=== PATIENT | male | born 1930 | race Caucasian/White ===

== ENCOUNTER 2017-05-16 15:52 | Inpatient (IN) | payer OTHER ==
[2017-05-16 17:18] LABS: Urine Appearance CLEAR; Urine Bilirubin NEGATIVE (NEG); Urine Blood NEGATIVE (NEG); Urine Color YELLOW; Urine Glucose NEGATIVE (NEG); Urine Protein 2+ (NEG); Urine Urobilinogen 0.2 mg/dL (0.2-1.0)
[2017-05-16] MEDS ORDERED: D50W 25 GM/50 ML SYRINGE IV PRN (17:21)
[2017-05-16] MEDS ORDERED: GLUCAGON 1 MG/VIAL IM PRN (17:21)
[2017-05-16] MEDS ORDERED: FUROSEMIDE 40 MG/4 ML VIAL IV ONE (17:22)
[2017-05-16 17:30] LABS: Urine Microscopic Reflex ORDER UMIC
[2017-05-16 17:47] LABS: Urine Bacteria NONE SEEN /HPF (NONE SEEN); Urine RBC NONE SEEN /HPF (NONE SEEN)
[2017-05-16 17:48] LABS: Urine Culture Reflex Order NOT NEEDED
[2017-05-16 17:52] LABS: Absolute Lymphocytes (CBC) 0.5 K/uL (0.7-4.9); Absolute Monocytes 0.6 K/uL (0.1-1.3); Absolute Neutrophil 5.7 K/uL (1.8-8.0); Basophils % 0.6 % (0-1.3); Eosinophils % 1.5 % (0-4.4); Lymphocytes % 7.7 % (15.3-44.8); MCV 93.1 fL (80-100); MPV 8.4 fL (7.6-11.3); Monocytes % 8.8 % (3.3-12.3); RBC Red Blood Cell Count 3.97 M/uL (4.33-5.43)
[2017-05-16 17:54] VITALS: BMI 26.2
[2017-05-16 17:56] LABS: Potassium 4.6 mEq/L (3.6-5.0)
[2017-05-16] MEDS: ENOXAPARIN 40 MG/0.4 ML SQ SCH (17:57)
[2017-05-16 17:59] LABS: Albumin 3.6 g/dL (3.2-5.5); Bilirubin Total 0.9 mg/dL (0.3-1.2); Magnesium 1.9 mg/dL (1.8-2.5); Protein, Total 5.7 g/dL (6.0-8.3)
[2017-05-16 18:38] LABS: Thyroid Stimulating Hormone 6.01 uIU/mL (0.34-5.60)
--- NOTE | 2017-05-16 20:03 | RAD REPORT ---
EXAM DESCRIPTION: Ximena Fofana And Tru (2 Views)05/16/2017 7:56 pm CLINICAL HISTORY: sob COMPARISON: March 2016 FINDINGS: Small bilateral pleural effusions are present. Mild bilateral interstitial lung opacities are seen. The heart is mildly to moderately enlarged. Postsurgical changes involve the chest. Pacemaker leads a re in place IMPRESSION: CHF
[2017-05-16] MEDS: INSULIN -REGULAR HUMAN 50 UNIT/0.5 ML ML SQ SCH (20:55)
[2017-05-17 04:41] LABS: Potassium 3.9 mEq/L (3.6-5.0)
[2017-05-17] MEDS ORDERED: POTASSIUM CL SA 10 MEQ TAB PO ONE (05:49)
[2017-05-17] MEDS: INSULIN -REGULAR HUMAN 50 UNIT/0.5 ML ML SQ SCH ×4 (07:30→20:36)
[2017-05-17] MEDS: FUROSEMIDE 40 MG/4 ML VIAL IV SCH (09:18)
[2017-05-17] MEDS: ENOXAPARIN 40 MG/0.4 ML SQ SCH (09:19)
[2017-05-17] MEDS: LOSARTAN/HCTZ 50-12.5 PO SCH ×2 (09:19→20:34)
[2017-05-17] MEDS: CARVEDILOL 6.25 MG TAB PO SCH ×2 (09:19→20:33)
[2017-05-17] MEDS: ASPIRIN EC 81 MG TAB PO SCH (09:20)
[2017-05-17] MEDS: TAMSULOSIN 0.4 MG SR CAP PO SCH (09:20)
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
[2017-05-17 09:47] LABS: A1c Component 0.66 mg/dL; Hemoglobin A1c 7.1 % (4-6.0)
--- NOTE | 2017-05-17 15:13 | PN ---
Date of Progress Note: 05/17/2017 The patient seen and examined. Chart reviewed and case discussed with RN. History: The patient is one of Dr. Huston's patients. Hospice service is covering for him. The patient reports improvement in his shortness of breath. Still has significant lower extremity edema. Review of Systems: Negative except as above. Medications: Reviewed. Physical Examination: Vital Signs: Temperature 97.3, heart rate 67, blood pressure 158/86, respirations 20, O2 96% on room air. General: Awake, alert, oriented x3. No acute distress. Elderly male. CV: S1, S2. No murmurs. Peripheral pulses present. Respiratory: Diminished breath sounds at the bases. Some crackles heard. No wheezing or stridor. Gastrointestinal: Abdomen is soft, nontender, nondistended. Positive bowel sounds. Extremities: No clubbing, cyanosis. 2+ pedal edema up to the shins. Neurologic: Nonfocal. Laboratory Data: Sodium 140, potassium 3.9, chloride 107, CO2 28, BUN 30, creatinine 1.26, glucose 109, hemoglobin A1c 7.1%, calcium 8.7, magnesium 2. Assessment And Plan: An 86-year-old male with. 1. Acute congestive heart failure exacerbation, diastolic dysfunction. The EF is 52% from November 2016. Repeat echocardiogram pending. We will continue with IV Lasix and monitor I's and O's. Free fluid restriction, 2 g sodium diet. 2. Coronary artery disease, [place] artery and [place] heart without angina, stable. Resume home medications. 3. Essential hypertension stable. Stable on medications. 4. Mixed hyperlipidemia. Statin. 5. Diabetes mellitus type 2 with hyperglycemia without long-term use of insulin. Continue sliding scale insulin and hemoglobin A1c 7.1%. 6. Diverticulosis. 7. Benign prostatic hypertrophy. 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
--- NOTE | 2017-05-17 16:30 | EKG ---
Test Date: 2017-05-16 Test Time: 17:31:02 Clay Miller: DEVAN MEASUREMENT RESULTS: Intervals: Rate: 64 MN: 260 QRSD: 186 QT: 500 QTc: 515 [place]: P: 48 MN: 260 QRS: -60 T: 119 INTERPRETIVE STATEMENTS: Electronic ventricular pacemaker Compared to ECG 06/17/2014 22:39:53 Sinus rhythm no longer present Myocardial infarct finding no longer present ST (T wave) deviation no longer present Possible ischemia no longer present Electronically Signed On 05-17-17 16:27:55 CDT by Chad Loza
--- NOTE | 2017-05-17 16:31 | ECHO ---
HEIGHT: 5 ft 11 in WEIGHT: 187 lb 12.8 oz DATE OF STUDY: 05/17/[address]: Froy Huston MD 2-DIMENSIONAL: YES M.MODE: YES DOPPLER: YES COLOR FLOW: YES TDS: PORTABLE: DEFINITY: BUBBLE STUDY: DIAGNOSIS: CONGESTIVE HEART FAILURE CARDIAC HISTORY: CATHERIZATION: YES SURGERY: CABG PROSTHETIC VALVE: PACEMAKER: YES MEASUREMENTS (cm) DIASTOLIC (NORMALS) SYSTOLIC (NORMALS) IVSd 1.4 (0.6-1.2) LA Diam 4.8 (1.9-4.0) LVEF 22% LVIDd 5.3 (3.5-5.7) LVIDs 4.8 (2.0-3.5) %FS 10% LVPWd 1.4 (0.6-1.2) Ao Diam 2.9 (2.0-3.7) 2 DIMENSIONAL ASSESSMENT: RIGHT ATRIUM: NORMAL LEFT ATRIUM: DILATED RIGHT VENTRICLE: NORMAL LEFT VENTRICLE: NORMAL SIZE TRICUSPID VALVE: NORMAL, PACER MITRAL VALVE: MITRAL ANNULAR CALCIFICATION PULMONIC VALVE: NORMAL AORTIC VALVE: SCLEROSIS PERICARDIAL EFFUSION: NONE AORTIC ROOT: NORMAL LEFT VENTRICULAR WALL MOTION: SEVERE GLOBAL HYPOKINESIS DOPPLER/COLOR FLOW: MODERATE TRICUSPID REGURGITATION. SEVERE PULMONARY HYPERTENSION. COMMENTS: SEVERE GLOBAL HYPOKINESIS. MODERATE TRICUSPID REGURGITATION. SEVERE PULMONARY HYPERTENSION. EJECTION FRACTION 20-25%. PACER IN RIGHT VENTRICULAR APEX. MITRAL ANNULAR CALCIFICATION. AORTIC SCLEROSIS. TECHNOLOGIST: TIA POP
[2017-05-17] MEDS: GLIMEPIRIDE 2 MG TABLET PO SCH (17:36)
[2017-05-17] MEDS: EZETIMIBE 10 MG TAB PO SCH (20:35)
[2017-05-17] MEDS ORDERED: HOME MED 1 EA UNK (Glimepiride [Glimepiride] 1 TAB) PO SCH (21:00)
[2017-05-18 05:29] LABS: Potassium 3.8 mEq/L (3.6-5.0)
[2017-05-18] MEDS ORDERED: POTASSIUM 25 MEQ EFFERV TAB PO ONE (05:39)
[2017-05-18] MEDS: INSULIN -REGULAR HUMAN 50 UNIT/0.5 ML ML SQ SCH ×4 (07:30→21:00)
[2017-05-18] MEDS: GLIMEPIRIDE 2 MG TABLET PO SCH ×2 (09:58→17:15)
[2017-05-18] MEDS: ASPIRIN EC 81 MG TAB PO SCH (09:59)
[2017-05-18] MEDS: TAMSULOSIN 0.4 MG SR CAP PO SCH (09:59)
[2017-05-18] MEDS: LOSARTAN/HCTZ 50-12.5 PO SCH ×2 (09:59→21:19)
[2017-05-18] MEDS: CARVEDILOL 6.25 MG TAB PO SCH ×2 (09:59→21:19)
[2017-05-18] MEDS: ENOXAPARIN 40 MG/0.4 ML SQ SCH (10:00)
[2017-05-18] MEDS: FUROSEMIDE 40 MG/4 ML VIAL IV SCH (10:00)
[2017-05-18] MEDS: SPIRONOLACTONE 25 MG TABLET PO SCH (15:17)
--- NOTE | 2017-05-18 18:39 | PN ---
Date of Progress Note: 05/18/2017 Subjective: The patient seen and examined, chart reviewed and case discussed with RN and patient xavi cuevas. States his breathing is better. Edema is improving slowly. Review of Systems: Negative except as above. Medications: Reviewed. Physical Examination: Vital Signs: Temperature 97.4, heart rate 73, blood pressure 150/69, respirations 18, O2 97% on room air. General: Awake, alert, oriented x3. No acute distress. Elderly male. CV: S1, S2. No murmurs. Peripheral pulses present bilaterally. Respiratory: Moving air well bilaterally. No wheezing. No stridor. Gastrointestinal: Abdomen is soft, nontender, nondistended. Positive bowel sounds. Extremities: No clubbing, cyanosis, 2+ edema bilateral lower extremities. Neurologic: Nonfocal. Laboratory Data: Sodium 139, potassium 3.8, chloride 104, CO2 29, creatinine 1.29, glucose 45, repea t glucose 77, calcium 9. Echocardiogram shows EF 22%, severe global hypokinesis, severe pulmonary hy pertension, EF 20% to 25%, pacing in the right ventricular apex, moderate tricuspid regurg. Assessment: An 86-year-old male with: 1.Acute congestive heart failure, combined systolic and diastolic dysfunction, ejection fraction is 22% from echo done yesterday. We will consult Cardiology. The patient does have severe global hypok inesis. 2.Coronary artery disease, [place] artery [place] heart without angina, stable. Continue medicati ons. 3.Essential hypertension, stable. 4.Mixed hyperlipidemia, on statin. 5.Diabetes mellitus type 2 with hyperglycemia without long-term use of insulin. The patient did hav e some hypoglycemic episodes, improved. 6.History of diverticulosis. 7.Benign prostatic hypertrophy. Plan: We will add spironolactone. Follow up with Cardiology. /VIRY Voice ID: [id number] Report ID: [id number]
[2017-05-18] MEDS: EZETIMIBE 10 MG TAB PO SCH (21:18)
[2017-05-19 03:21] VITALS: O2SAT 97
[2017-05-19 04:56] LABS: Potassium 3.8 mEq/L (3.6-5.0)
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
[2017-05-19] MEDS: INSULIN -REGULAR HUMAN 50 UNIT/0.5 ML ML SQ SCH ×2 (07:30→12:10)
[2017-05-19] MEDS ORDERED: POTASSIUM 25 MEQ EFFERV TAB PO ONE (09:00)
[2017-05-19] MEDS: ASPIRIN EC 81 MG TAB PO SCH (09:56)
[2017-05-19] MEDS: CARVEDILOL 6.25 MG TAB PO SCH (09:56)
[2017-05-19] MEDS: SPIRONOLACTONE 25 MG TABLET PO SCH (09:56)
[2017-05-19] MEDS: GLIMEPIRIDE 2 MG TABLET PO SCH (09:56)
[2017-05-19] MEDS: TAMSULOSIN 0.4 MG SR CAP PO SCH (09:57)
[2017-05-19] MEDS: LOSARTAN/HCTZ 50-12.5 PO SCH (09:57)
[2017-05-19] MEDS: ENOXAPARIN 40 MG/0.4 ML SQ SCH (09:58)
[2017-05-19] MEDS: FUROSEMIDE 40 MG/4 ML VIAL IV SCH (09:58)
--- NOTE | 2017-05-19 11:12 | RAD REPORT ---
EXAM DESCRIPTION: RAD - Chest Pa And Lat (2 Views) - 05/19/2017 6:10 am CLINICAL HISTORY: CHF, followup assessment. COMPARISON: 05/16/2017, 04/14/2016 FINDINGS: Little overall change is seen in the aeration of the lungs since the comparative study. Sm all bilateral pleural effusions are present, slightly reduced in size on the right. The heart is mode rately enlarged in size with multilead pacer device present. Sternotomy wires are present. No displac ed fractures. IMPRESSION: Essentially stable chest since comparative study.
[2017-05-19 13:17] VITALS: BP 152/79; TEMP 98.1
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
== END 2017-05-19 14:23 | disposition home or self-care (01) | DRG 291 ==
LOC: 4TH 16:32
PROVIDERS: ADMIT Family Medicine; ATTEND Family Medicine
DX: I13.0 Hypertensive heart and chronic kidney disease with heart failure and stage 1 through stage 4 chronic kidney disease, or unspecified chronic kidney disease (principal); I50.43 Acute on chronic combined systolic (congestive) and diastolic (congestive) heart failure; E11.22 Type 2 diabetes mellitus with diabetic chronic kidney disease; N18.3 Chronic kidney disease, stage 3 (moderate); I25.10 Atherosclerotic heart disease of native coronary artery without angina pectoris; K57.90 Diverticulosis of intestine, part unspecified, without perforation or abscess without bleeding; N40.0 Benign prostatic hyperplasia without lower urinary tract symptoms; Z95.1 Presence of aortocoronary bypass graft
CPT/HCPCS: 36415; 71046; 80048; 80053; 81003; 81015; 82962; 83036; 83735; 83880; 84439; 84443; 85025; 93005; 93306; 97163; J1650

== ENCOUNTER 2017-06-12 19:39 | Inpatient (IN) | payer OTHER ==
--- NOTE | 2017-06-12 20:44 | RAD REPORT ---
EXAM DESCRIPTION: RAD - Chest Single View - 06/12/2017 8:32 pm CLINICAL HISTORY: Shortness of breath COMPARISON: 05/19/2017, 05/08/2017 FINDINGS: Portable technique limits examination quality. Mild interstitial pulmonary edema is noted. Small left and moderate right pleural effusion is seen. T he heart is moderately enlarged in size with a dual lead pacer device seen. No displaced fractures.St ernotomy wires present. IMPRESSION: Mild CHF/ volume overload pattern.
[2017-06-12] MEDS ORDERED: FUROSEMIDE 40 MG/4 ML VIAL ONE (20:50)
[2017-06-12 20:51] LABS: Absolute Lymphocytes (CBC) 0.7 K/uL (0.7-4.9); Absolute Monocytes 0.6 K/uL (0.1-1.3); Absolute Neutrophil 5.5 K/uL (1.8-8.0); Basophils % 0.6 % (0-1.3); Eosinophils % 1.2 % (0-4.4); Hematocrit 35.6 % (39.6-49.0); Lymphocytes % 9.9 % (15.3-44.8); MCH 31.5 pg (27.0-35.0); MCV 93.2 fL (80-100); MPV 8.2 fL (7.6-11.3); Monocytes % 8.5 % (3.3-12.3); RBC Red Blood Cell Count 3.82 M/uL (4.33-5.43)
[2017-06-12 20:52] LABS: Protime INR 1.12
--- NOTE | 2017-06-12 20:52 | ER ---
Nurse's Notes [facility] Name: Gonzalo Lincoln Age: 86 yrs Sex: Male : 1930 Arrival Date: 06/12/2017 Time: 19:41 Bed 8 Private MD: Nena Huston C Diagnosis: Systolic (congestive) heart failure Presentation: 06/12 19:49 Presenting complaint: Patient states: Reports SOB for 1 week. Patient also reports aj scrotal and penile swelling for 2-3 months. Denies lower extremity swelling. Transition of care: patient was not received from another setting of care. Onset of symptoms was June 05, 2017. Initial Sepsis Screen: Does the patient meet any 2 criteria? No. Patient's initial sepsis screen is negative. Does the patient have a suspected source of infection? No. Patient's initial sepsis screen is negative. Care prior to arrival: None. 19:49 Method Of Arrival: Ambulatory aj 19:49 Acuity: LIV 3 aj Triage Assessment: 19:50 General: Appears in no apparent distress. comfortable, Behavior is calm, cooperative, aj appropriate for age. Pain: Denies pain. Neuro: Level of Consciousness is awake, alert, obeys commands, Oriented to person, place, time, situation. Respiratory: Reports shortness of breath Airway is patent Respiratory effort is even, unlabored, Respiratory pattern is regular, symmetrical. : Reports incontinence, swelling to scrotum and penis. Derm: Skin is intact, is healthy with good turgor, Skin is pink, warm \T\ dry. normal. Historical: - Allergies: 19:50 NKDA; aj - Home Meds: 19:55 aspirin 81 mg Oral TbEC 1 tab once daily [Active]; carvedilol 6.25 mg oral tab 1 tab 2 aj times per day [Active]; spironolactone 25 mg Oral tab 1 tab 2 times per day [Active]; losartan 50 mg oral tab 1 tab once daily [Active]; tamsulosin 0.4 mg oral cp24 1 cap once daily [Active]; furosemide 40 mg Oral tab 1 tab once daily [Active]; Tradjenta 5 mg oral tab 1 tab once daily [Active]; ezetimibe oral 10 mg oral 1 tab once daily [Active]; - PMHx: 19:50 CAD; Diabetes - NIDDM; aj - PSHx: 19:55 CABG; aj - Immunization history:: Adult Immunizations up to date. - Social history:: Smoking status: Patient/guardian denies using tobacco. Screenin:10 Abuse screen: Denies threats or abuse. Denies injuries from another. Nutritional aa1 screening: No deficits noted. Tuberculosis screening: No symptoms or risk factors identified. Fall Risk None identified. Assessment: 20:10 General: Appears in no apparent distress. comfortable, Behavior is calm, cooperative, aa1 appropriate for age. Pain: Denies pain. Neuro: Level of Consciousness is awake, alert, obeys commands, Oriented to person, place, time, situation, Moves all extremities. Full function Gait is steady. Cardiovascular: Reports shortness of breath, Denies chest pain, diaphoresis, palpitations, Heart tones S1 S2 present Capillary refill < 3 seconds Patient's skin is warm and dry. Edema is 2+ to left midcalf, left ankle, right midcalf and right ankle pitting to left midcalf, left ankle, right midcalf and right ankle Rhythm is regular. Respiratory: Airway is patent Respiratory effort is even, unlabored, Respiratory pattern is regular, symmetrical, Parent/caregiver reports the patient having shortness of breath on exertion. GI: No signs and/or symptoms were reported involving the gastrointestinal system. : Swelling noted on scrotum Reports incontinence. EENT: No signs and/or symptoms were reported regarding the EENT system. Derm: Skin is intact, is healthy with good turgor, Skin is pink, warm \T\ dry. Musculoskeletal: Circulation, motion, and sensation intact. Capillary refill < 3 seconds, Range of motion: intact in all extremities. 21:10 Reassessment: Patient appears in no apparent distress at this time. Patient and/or aa1 family updated on plan of care and expected duration. Pain level reassessed. Patient is alert, oriented x 3, equal unlabored respirations, skin warm/dry/pink. Awaiting bed assignment. 22:12 Reassessment: Patient appears in no apparent distress at this time. Patient and/or aa1 family updated on plan of care and expected duration. Pain level reassessed. Patient is alert, oriented x 3, equal unlabored respirations, skin warm/dry/pink. Attempted to call report to floor; was told nurse is currently unavailable and will c all back. 22:50 Reassessment: Patient appears in no apparent distress at this time. Patient is alert, aa1 oriented x 3, equal unlabored respirations, skin warm/dry/pink. Report given to Mariam on 2nd floor. Vital Signs: 19:50 BP 135 / 89; Pulse 82; Resp 20; Temp 97.5; Pulse Ox 96% on R/A; Weight 79.38 kg; Height aj 5 ft. 11 in. (180.34 cm); Pain 0/10; 20:37 BP 152 / 90; Pulse 73; Resp 18; Pulse Ox 97% on R/A; aa1 21:00 BP 143 / 93; Pulse 85; Resp 20; Pulse Ox 95% on R/A; Pain 0/10; aa1 22:00 BP 144 / 84; Pulse 67; Resp 20; Pulse Ox 97% on R/A; Pain 0/10; aa1 19:50 Body Mass Index 24.41 (79.38 kg, 180.34 cm) aj ED Course: 19:41 Patient arrived in ED. am2 19:42 Nena Huston MD is Private Physician. am2 19:50 Triage completed. aj 19:50 Arm band placed on right wrist. Patient placed in an exam room. aj 20:01 Saqib Mclean MD is Attending Physician. gs 20:10 Patient has correct armband on for positive identification. Placed in gown. Bed in low aa1 position. Call light in reach. Pulse ox on. NIBP on. Warm blanket given. 20:24 Brandi Gunn, RN is Primary Nurse. aa1 20:31 X-ray completed. Portable x-ray completed in exam room. Patient tolerated procedure bb2 well. 20:31 XRAY Chest (1 view) In Process Unspecified. EDMS 20:40 Initial lab(s) drawn, by me, sent to lab. EKG done, by ED staff, reviewed by Saqib Mclean MD. Inserted saline lock: 20 gauge in left antecubital area, using aseptic technique. Blood collected. 20:51 Nena Huston MD is Hospitalizing Provider. gs 21:15 Urine collected: clean catch specimen, jerome colored, Amount Voided: 150mL. cb2 22:58 No provider procedures requiring assistance completed. Patient admitted, IV remains in aa1 place. Administered Medications: 20:56 Drug: Lasix 40 mg Route: IVP; Site: left antecubital; aa1 Outcome: 20:51 Decision to Hospitalize by Provider. 22:58 Admitted to Tele accompanied by tech, via wheelchair, room 214, with chart, Report aa1 called to Adrian 22:58 Condition: stable 22:58 Instructed on the need for admit, Demonstrated understanding of instructions. 22:59 Patient left the ED. aa1 Signatures: Dispatcher [employer] EDBrandi Hoover RN RN aa1 France Haque RN RN aj Moreno, Amanda am2 Miguel Thompson Gregory, MD MD gs Bock, Bethanie bb2 Corrections: (The following items were deleted from the chart) 22:21 20:10 BP 143 / 93; Pulse 85bpm; Resp 20bpm; Pulse Ox 95% RA; Pain 0/10; aa1 aa1
--- NOTE | 2017-06-12 20:53 | EDPHYS ---
Physician Documentation [facility] Name: Gonzalo Lincoln Age: 86 yrs Sex: Male : 1930 Arrival Date: 06/12/2017 Time: 19:41 Bed 8 Private MD: Nena Huston C ED Physician aSqib Mclean HPI: 06/12 20:16 This 86 yrs old Male presents to ER via Ambulatory with complaints of gs Testicular Swelling - Penile. 20:16 The patient has shortness of breath that woke him/her from sleep. Onset: The gs symptoms/episode began/occurred 2 week(s) ago, and became persistent. Duration: The symptoms are intermittent, with no pattern. The patient's shortness of breath has no apparent modifying factors. Associated signs and symptoms: Pertinent negatives: chest pain, non-productive cough. Severity of symptoms: At their worst the symptoms were severe in the emergency department the symptoms have improved markedly. The patient has experienced similar episodes in the past, several times. Historical: - Allergies: 19:50 NKDA; aj - Home Meds: 19:55 aspirin 81 mg Oral TbEC 1 tab once daily [Active]; carvedilol 6.25 mg oral tab 1 tab 2 aj times per day [Active]; spironolactone 25 mg Oral tab 1 tab 2 times per day [Active]; losartan 50 mg oral tab 1 tab once daily [Active]; tamsulosin 0.4 mg oral cp24 1 cap once daily [Active]; furosemide 40 mg Oral tab 1 tab once daily [Active]; Tradjenta 5 mg oral tab 1 tab once daily [Active]; ezetimibe oral 10 mg oral 1 tab once daily [Active]; - PMHx: 19:50 CAD; Diabetes - NIDDM; aj - PSHx: 19:55 CABG; aj - Immunization history:: Adult Immunizations up to date. - Social history:: Smoking status: Patient/guardian denies using tobacco. ROS: 20:16 Constitutional: Negative for fever. gs 20:16 All other systems are negative. Exam: 20:16 Head/Face: Normocephalic, atraumatic. Eyes: Pupils equal round and reactive to light, gs extra-ocular motions intact. Lids and lashes normal. Conjunctiva and sclera are non-icteric and not injected. Cornea within normal limits. Periorbital areas with no swelling, redness, or edema. ENT: Nares patent. No nasal discharge, no septal abnormalities noted. Tympanic membranes are normal and external auditory canals are clear. Oropharynx with no redness, swelling, or masses, exudates, or evidence of obstruction, uvula midline. Mucous membranes moist. Neck: Trachea midline, no thyromegaly or masses palpated, and no cervical lymphadenopathy. Supple, full range of motion without nuchal rigidity, or vertebral point tenderness. No Meningismus. Chest/axilla: Normal chest wall appearance and motion. Nontender with no deformity. No lesions are appreciated. 20:16 Abdomen/GI: Soft, non-tender, with normal bowel sounds. No distension or tympany. No guarding or rebound. No evidence of tenderness throughout. Back: No spinal tenderness. No costovertebral tenderness. Full range of motion. Skin: Warm, dry with normal turgor. Normal color with no rashes, no lesions, and no evidence of cellulitis. MS/ Extremity: Pulses equal, no cyanosis. Neurovascular intact. Full, normal range of motion. Neuro: Awake and alert, GCS 15, oriented to person, place, time, and situation. Cranial nerves II-XII grossly intact. Motor strength 5/5 in all extremities. Sensory grossly intact. Cerebellar exam normal. Normal gait. 20:16 Constitutional: The patient appears alert, awake. 20:16 Cardiovascular: Rate: normal, Rhythm: regular, Pulses: no pulse deficits are appreciated. 20:16 Cardiovascular: Edema: 2+ edema to level of left midcalf and right midcalf. 20:16 Respiratory: the patient does not display signs of respiratory distress, Respirations: normal, Breath sounds: rales, that are moderate, are located in both bases. 20:16 : Male external genitalia: swelling, penile, scrotal, that is moderate. 20:47 ECG was reviewed by the Attending Physician. Vital Signs: 19:50 BP 135 / 89; Pulse 82; Resp 20; Temp 97.5; Pulse Ox 96% on R/A; Weight 79.38 kg; Height aj 5 ft. 11 in. (180.34 cm); Pain 0/10; 20:37 BP 152 / 90; Pulse 73; Resp 18; Pulse Ox 97% on R/A; aa1 21:00 BP 143 / 93; Pulse 85; Resp 20; Pulse Ox 95% on R/A; Pain 0/10; aa1 22:00 BP 144 / 84; Pulse 67; Resp 20; Pulse Ox 97% on R/A; Pain 0/10; aa1 19:50 Body Mass Index 24.41 (79.38 kg, 180.34 cm) aj MDM: 20:10 Patient medically screened. 20:16 Differential diagnosis: CHF exacerbation, Chronic Obstructive Pulmonary Disease gs Myocardial Infarction pneumonia. Data reviewed: vital signs, nurses notes. 20:47 Physician consultation: A Betzaida DENISE and will see patient in inpatient room, would like medications started, Lasix, 40 BID. 06/12 20:11 Order name: Basic Metabolic Panel; Complete Time: 21:06 06/12 20:11 Order name: BNP; Complete Time: 21:09 06/12 20:11 Order name: CBC with Diff 06/12 20:11 Order name: PT-INR 06/12 20:11 Order name: Troponin (emerg Dept Use Only); Complete Time: 21:09 06/12 21:16 Order name: Troponin I [facility] 06/12 20:11 Order name: XRAY Chest (1 view); Complete Time: 20:47 06/12 20:11 Order name: EKG; Complete Time: 20:11 06/12 21:16 Order name: [address] [facility] 06/12 21:16 Order name: EKG Electrocardiogram [facility] 06/12 21:16 Order name: Troponin I [facility] 06/12 21:16 Order name: Troponin I [facility] 06/12 21:16 Order name: Urine Dipstick--Ancillary (enter results) [facility] 06/12 20:11 Order name: Cardiac monitoring; Complete Time: 20:43 06/12 20:11 Order name: EKG - Nurse/Tech; Complete Time: 20:43 06/12 20:11 Order name: IV Saline Lock; Complete Time: 20:43 06/12 20:11 Order name: Labs collected and sent; Complete Time: 20:43 06/12 20:11 Order name: O2 Per Protocol; Complete Time: 20:43 06/12 20:11 Order name: O2 Sat Monitoring; Complete Time: 20:43 06/12 20:11 Order name: Urine Dipstick-Ancillary (obtain specimen); Complete Time: 21:17 06/12 21:16 Order name: EKG Electrocardiogram [facility] EC:47 Rate is 74 beats/min. CA interval is prolonged. QRS interval is prolonged. T waves are Normal. No ST changes noted. Clinical impression: PACED NO ACUTE CHANGES. Interpreted by me. Administered Medications: 20:56 Drug: Lasix 40 mg Route: IVP; Site: left antecubital; aa1 Disposition: 20:47 Critical Care:. Disposition: 06/12/17 20:51 Hospitalization ordered by Nena Huston for Inpatient Admission. Preliminary diagnosis is Systolic (congestive) heart failure. - Bed requested for Telemetry/MedSurg (Inpatient). - Status is Inpatient Admission. aa1 - Condition is Stable. - Problem is new. - Symptoms have improved. UTI on Admission? No Critical care time excluding procedures: 20:47 Critical care time: Bedside Care: 10 minutes, Consultation: 10 minutes, Family Intervention: 10 minutes. Total time: 30 minutes Signatures: Dispatcher [employer] [facility] Nancy Guillen 2 Brandi Gunn RN RN aa1 France Haque RN RN Saqib Burks MD MD
[2017-06-12 20:58] LABS: Potassium 4.4 mEq/L (3.6-5.0)
[2017-06-12] MEDS ORDERED: ACETAMINOPHEN 500 MG TAB PO PRN (21:13)
[2017-06-12 21:18] LABS: Urine Blood NEGATIVE (NEG); Urine Glucose NEGATIVE (NEG); Urine Protein TRACE (NEG); Urine pH 6.5 (5.0-7.0)
--- NOTE | 2017-06-13 06:54 | EKG ---
Test Date: 2017-06-12 Test Time: 20:35:36 [employer] Gold Wheel: SUMMER MEASUREMENT RESULTS: Intervals: Rate: 74 MS: 274 QRSD: 190 QT: 476 QTc: 528 [place]: P: 67 MS: 274 QRS: -65 T: 117 INTERPRETIVE STATEMENTS: Atrial-sensed ventricular-paced rhythm with prolonged AV conduction with occasional premature ventricular complexes Abnormal ECG Compared to ECG 05/16/2017 17:31:02 Ventricular premature complex(es) now present Electronically Signed On 06-13-17 06:54:07 CDT by Mahesh Kemp
[2017-06-13] MEDS ORDERED: GLUCAGON 1 MG/VIAL IM PRN (08:03)
[2017-06-13] MEDS ORDERED: D50W 25 GM/50 ML SYRINGE IV PRN (08:03)
[2017-06-13] MEDS: SACUBITRIL/VALSARTAN 24/26 MG TAB PO SCH ×2 (09:00→20:40)
[2017-06-13] MEDS: CARVEDILOL 3.125 MG TAB PO SCH ×2 (10:11→20:39)
[2017-06-13] MEDS: ASPIRIN EC 81 MG TAB PO SCH (10:11)
[2017-06-13] MEDS: ENOXAPARIN 30 MG/0.3 ML SQ SCH (10:12)
[2017-06-13] MEDS: FUROSEMIDE 20 MG/ 2ML VIAL IV SCH ×2 (10:12→17:37)
[2017-06-13] MEDS: INSULIN -REGULAR HUMAN 50 UNIT/0.5 ML ML SQ SCH ×3 (11:30→21:00)
[2017-06-14 04:31] VITALS: BMI 22.1
--- NOTE | 2017-06-14 04:35 | HP ---
Date of Admission: 06/13/2017 Chief Complaint: Shortness of breath and swelling. History Of Present Illness: An 86-year-old male patient who has multiple medical problems including congestive heart failure with low ejection fraction, who says he takes his medications regularly as prescribed, comes into emergency room with increasing swelling and shortness of breath. He is complaining of shortness of breath problem at nighttime while he is sleeping and last few days , he is having trouble breathing at nighttime and has to sit up. Also has shortness of breath with normal day-to-day activities. Denies any chest pain. He has some swelling of his legs and external genitalia. With all these complaints, he came into emergency room. After he was evaluated, he was admitted to the hospital with congestive heart failure problem. Allergies: THE PATIENT HAS SIDE EFFECT FROM STATIN DRUG CAUSING MYALGIA, OTHERWISE HE IS NOT ALLERGIC TO ANY MEDICATIONS. Medications: List reviewed. Review of Systems: Cardiovascular: As mentioned above. All other systems reviewed and negative. Past Medical History: Significant for chronic systolic congestive heart failure with low ejection fraction of 22% as per echocardiogram from April 2017 during last hospital admission. Prior medical history also significant for hypertension, type 2 diabetes mellitus, hyperlipidemia, chronic kidney disease stage 3, coronary artery disease, benign prostatic hypertrophy, diverticulosis, gastroesophageal reflux disease. 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 Family History: Significant for coronary artery disease, stroke, hypertension. Social History: Negative for smoking or alcohol use. Physical Examination: Vital Signs: Temperature 97.3, pulse 67, respiratory rate 16, blood pressure 158/77, ox saturation 98%. Height 5 feet 11 inches. Weight 176 pounds. General: Awake, alert, oriented, not in distress. HEENT: Head atraumatic, normocephalic. Conjunctivae nonerythematous. Sclerae white. Mouth, no thrush or edema noted. Ears/Nose, no mass, lesion, discharge noted. Neck: Supple. No JVD, lymph nodes, bruit, thyromegaly noted. Lungs: Rales present in both lower lung starks. Not using accessory muscles of respiration. Heart: Normal heart sounds, no murmur or gallop. Abdomen: Soft, bowel sounds normal. No guarding, rigidity, tenderness, mass, hepatosplenomegaly, distention, or bruit noted. Extremities: Bilateral grade 2 pedal edema. No calf tenderness. Skin: No rash, ulcer, cellulitis. Lymphatics: No lymph node enlargement in neck, supraclavicular, infraclavicular region. Neuro: No focal neurological deficit. Chest: Unremarkable. External Genitalia: Swelling of external genitalia involving penile shaft and scrotum. Rectal: Deferred. Laboratory Data: White count 6.8, hemoglobin 12, platelets 198. Sodium 136, potassium 4.4, chloride 104, bicarb 28, BUN 30, creatinine 1.35, glucose 199. BNP 2732. Troponin 0.04 and 0.05 on 2 different tests. Urinalysis negative, except trace protein. EKG; atrial sensed ventricular paced rhythm with prolonged AV conduction. Chest x-ray; CHF/volume overload pattern. Impression: 1. Congestive heart failure, systolic, chronic with acute exacerbation. 2. Chronic kidney disease, stage 3. 3. Anemia due to chronic kidney disease. 4. Coronary artery disease. 5. Hypertension. 6. Hyperlipidemia. 7. Type 2 diabetes mellitus. 8. Diverticulosis. 9. Benign prostatic hypertrophy. Plan: Admit the patient to hospital for further evaluation and management of this problem. The patient is appropriate for inpatient and is expected to spend 2 midnights in hospital. We will continue home medications per order. DVT prophylaxis will be given using Lovenox. We will start him on Entresto. Give IV Lasix per order. Intake and output and daily weight will be monitored. We will monitor electrolytes and renal function. The patient's echocardiogram from 05/16/2017 had shown ejection fraction 22%. Considering this recent echocardiogram, there is no need to repeat another echocardiogram. After this last hospital admission, I did see him for followup at office sometime this month and at that time, I advised him to follow up with tomato grader and instead of using local tomato grader the patient wanted to go back and see his tomato grader, Dr. Bowman, as the patient reported that he has been seeing him for a long time and claims that he sees him still on a regular basis and he was going to follow up with him and I did give him a copy of that echocardiogram to take it to Dr. Bowman. Today, he tells me that he did try to schedule appointment with Dr. Bowman, but he has not heard anything back from his office and he wants office to help schedule appointment for him and which we will do so. I will see him tomorrow for followup, possible discharge to go home, either Sunday or Sunday of this week depending on his condition. Details and plan of treatment discussed with him. SAMIR/VIRY Voice ID: [id number]
[2017-06-14 04:45] LABS: Absolute Monocytes 0.7 K/uL (0.1-1.3); Absolute Neutrophil 5.3 K/uL (1.8-8.0); Basophils % 0.7 % (0-1.3); Eosinophils % 2.2 % (0-4.4); Hematocrit 37.3 % (39.6-49.0); MCH 30.8 pg (27.0-35.0); MCV 93.5 fL (80-100); MPV 8.4 fL (7.6-11.3); Monocytes % 10.1 % (3.3-12.3); RBC Red Blood Cell Count 3.99 M/uL (4.33-5.43)
[2017-06-14 05:19] LABS: Potassium 3.7 mEq/L (3.6-5.0)
[2017-06-14 05:43] LABS: Albumin 3.4 g/dL (3.2-5.5); Magnesium 1.8 mg/dL (1.8-2.5); Protein, Total 5.4 g/dL (6.0-8.3)
[2017-06-14] MEDS ORDERED: POTASSIUM 25 MEQ EFFERV TAB PO ONE ×2 (06:24→18:45)
[2017-06-14] MEDS ORDERED: MAGNESIUM SULFATE 1 gm IVPB 1 GM/100 ML BAG IV ONE (06:24)
[2017-06-14] MEDS ORDERED: NA CHLORIDE 0.9% 250 ML ONE (06:42)
[2017-06-14] MEDS: INSULIN -REGULAR HUMAN 50 UNIT/0.5 ML ML SQ SCH ×5 (07:30→20:58)
[2017-06-14] MEDS: CARVEDILOL 3.125 MG TAB PO SCH ×2 (09:44→21:09)
[2017-06-14] MEDS: ASPIRIN EC 81 MG TAB PO SCH (09:44)
[2017-06-14] MEDS: FUROSEMIDE 20 MG/ 2ML VIAL IV SCH ×2 (09:45→17:04)
[2017-06-14] MEDS: ENOXAPARIN 30 MG/0.3 ML SQ SCH (09:45)
[2017-06-14] MEDS: SACUBITRIL/VALSARTAN 24/26 MG TAB PO SCH ×2 (09:45→21:09)
[2017-06-14] MEDS ORDERED: KCL 20 MEQ/100 mL IVPB 20 MEQ/100 ML BAG IV SCH (19:00)
--- NOTE | 2017-06-15 00:09 | PN ---
Date of Progress Note: 06/14/2017 Subjective: The patient was seen this morning for followup. No new complaints or problems reported by the patient. Denies any shortness of breath during nighttime. No chest pain. Objective: Vital Signs: Reviewed. HEENT: Unremarkable. Lungs: Bilateral good equal air entry. Presence of some rales noted in bilateral lung bases, overal l better than yesterday. Heart: Sounds normal. Abdomen: Soft, bowel sounds normal. No guarding, rigidity, tenderness, distention. Extremities: Bilateral leg edema present, but better today than yesterday. Laboratory Data: White count 7.2, hemoglobin 12.3, platelets 227. Sodium 137, potassium 3.7, chlori de 100, bicarb 32, BUN 25, creatinine 1.13, glucose 138. Liver function test unremarkable. Impression: 1.Congestive heart failure, systolic, chronic, with acute exacerbation. 2.Hypertension. 3.Hyperlipidemia. 4.Type 2 diabetes mellitus. 5.Chronic kidney disease, stage 3. Plan: We will go ahead and continue current medications, IV Lasix and other medical management for c ongestive heart failure including Entresto and carvedilol. Diabetes management will be continued wit h sliding scale insulin. Ambulation was encouraged. I will see him tomorrow for followup. Possible discharge to go home in next 1 or 2 days. I have informed the patient to contact my office upon dis charge to get a referral appointment scheduled for him to go visit his seam rubbing machine operator, Dr. Bowman. SAMIR/MODL Voice ID: [id number] Report ID: [id number]
[2017-06-15 05:38] LABS: Potassium 3.7 mEq/L (3.6-5.0)
[2017-06-15] MEDS ORDERED: POTASSIUM 25 MEQ EFFERV TAB PO ONE (05:51)
[2017-06-15] MEDS: INSULIN -REGULAR HUMAN 50 UNIT/0.5 ML ML SQ SCH ×2 (07:30→11:30)
[2017-06-15] MEDS: SACUBITRIL/VALSARTAN 24/26 MG TAB PO SCH (09:02)
[2017-06-15] MEDS: ENOXAPARIN 30 MG/0.3 ML SQ SCH (09:02)
[2017-06-15] MEDS: CARVEDILOL 3.125 MG TAB PO SCH (09:03)
[2017-06-15] MEDS: FUROSEMIDE 20 MG/ 2ML VIAL IV SCH (09:04)
[2017-06-15] MEDS: ASPIRIN EC 81 MG TAB PO SCH (09:06)
--- NOTE | 2017-06-15 10:28 | RAD REPORT ---
EXAM DESCRIPTION: RAD - Chest Pa And Lat (2 Views) - 06/15/2017 9:26 am CLINICAL HISTORY: CHF COMPARISON: June 12 TECHNIQUE: PA and lateral views of the chest were obtained. FINDINGS: The lungs are normal volume. No alveolar edema or significant interstitial edema seen. Yamini g markings have decreased in prominence. Pleural effusions have substantially improved on the right b ase atelectasis has resolved or nearly fully resolved. Heart size has decreased. Vasculature is in normal limits. Trachea is midline. No pneumothorax. No acute bony finding noted. No aortic abnormality. IMPRESSION: Near complete clearing of the CHF/ volume overload findings since June 12. Minimal pleu ral effusions remain.
[2017-06-15 12:29] VITALS: BP 112/68
[2017-06-15 13:03] VITALS: TEMP 97.4
[2017-06-15 13:06] VITALS: O2SAT 98
--- NOTE | 2017-06-16 06:08 | DS ---
Date of Discharge: 06/15/2017 Disposition: The patient will be discharged to go home. Physical Examination: HEENT: Unremarkable. Lungs: Clear to auscultation. Heart: Sounds normal. Abdomen: Soft. Bowel sounds normal. No guarding, rigidity, tenderness, or distention. Extremities: Very trace leg edema, significantly better compared to what it was at the time of admis kayla. Hospital Course: An 86-year-old male patient, admitted to the hospital with complaints of swelling a nd shortness of breath. Please see dictated H and P for more information. The patient has chronic s ystolic congestive heart failure with ejection fraction around 20%-22% as per echocardiogram from t month. He was taking his medications regularly and came into emergency room with shortness of mayela th with day-to-day activity, shortness of breath at nighttime as well as swelling of his leg and his external genitalia. Denies any chest pain. After he was evaluated in the emergency room, he was adm itted to the hospital with acute exacerbation of his CHF problem. He was started on IV Lasix and sarina ly weight and intake output was monitored. He has lost almost 20 pounds since he has been in the hos pital if the record is correct and that is a significant amount of fluid that he was retaining. Symp tomatically, he is feeling much better last 2 nights. He denies any paroxysmal nocturnal dyspnea or orthopnea and he is ambulating well without any shortness of breath in the hospital. He normally see s his grill attendant, Dr. Bowman, almost every 6 months and recently after his last hospital admission, he tried to schedule appointment but he has not heard anything back from his office, so he is going t o request my office staff to try to help him schedule appointment for followup with Dr. Bowman for thi s congestive heart failure problem. I have informed the patient that his medications will be differe nt upon discharge from the hospital at this time and he will need to pay attention and take it accord ing to the discharge order and he was also instructed that when he comes to see me at office for [employer], he should bring all his medications with him for me to review. Final Diagnoses: 1.Congestive heart failure, systolic, chronic with acute exacerbation. 2.Chronic kidney disease, stage 3. 3.Anemia due to chronic kidney disease. 4.Coronary artery disease. 5.Hypertension. 6.Hyperlipidemia. 7.Type 2 diabetes mellitus. 8.Diverticulosis. 9.Benign prostatic hypertrophy. Laboratory Data: Labs upon admission, white count was 6.8, hemoglobin 12, platelets 198 on 8 and yesterday, white count 7.2, hemoglobin 12.3, platelets 227. His last chemistry from today, sod ium 136, potassium 3.7, chloride 99, bicarb 31, BUN 29, creatinine 1.23, glucose 143, magnesium 2. U sara admission, sodium 136, potassium 4.4, chloride 104, bicarb 28, BUN 30, creatinine 1.35, glucose 1 99. BNP upon admission was 2732. Discharge Medications And Instructions: 1.Take medication as prescribed. 2.Follow up at my office in 2 weeks and the patient to bring all his medication bottles at the time of office visit. 3.Benadryl 50 mg at bedtime as needed. 4.Zetia 10 mg at bedtime. 5.Tradjenta 5 mg p.o. daily. 6.Flomax 0.4 mg p.o. daily. 7.Carvedilol 6.25 mg p.o. twice a day. 8.Aspirin 81 mg p.o. daily. 9.Entresto 24/26 mg 1 tablet p.o. twice a day. 10.Furosemide 40 mg p.o. twice a day. SAMIR/MODL Voice ID: [id number] Report ID: [id number]
== END 2017-06-15 12:39 | disposition home or self-care (01) | DRG 291 ==
LOC: ER 19:39 → ERHOLD 21:13 → 2ND 21:47
PROVIDERS: ADMIT Internal Medicine; ATTEND Internal Medicine
DX: I13.0 Hypertensive heart and chronic kidney disease with heart failure and stage 1 through stage 4 chronic kidney disease, or unspecified chronic kidney disease (principal); I50.23 Acute on chronic systolic (congestive) heart failure; N18.3 Chronic kidney disease, stage 3 (moderate); I25.10 Atherosclerotic heart disease of native coronary artery without angina pectoris; E78.5 Hyperlipidemia, unspecified; K21.9 Gastro-esophageal reflux disease without esophagitis; E11.22 Type 2 diabetes mellitus with diabetic chronic kidney disease; D63.1 Anemia in chronic kidney disease; N40.0 Benign prostatic hyperplasia without lower urinary tract symptoms; K57.90 Diverticulosis of intestine, part unspecified, without perforation or abscess without bleeding
CPT/HCPCS: 36415; 71045; 71046; 80048; 80053; 81003; 82962; 83735; 83880; 84484; 85025; 85610; 93005; 96374; 97163; 99285; J1650; J1940; J3475

== ENCOUNTER 2017-12-05 13:26 | Emergency (ER) | payer OTHER ==
[2017-12-05] MEDS ORDERED: LIDOCAINE 1% MPF 5 ML VIAL ONE (14:04)
[2017-12-05] MEDS ORDERED: BUPIVACAINE 0.5% PF 10 ML VIAL ONE (14:04)
[2017-12-05] MEDS ORDERED: SMZ./TMP. 800/160 MG TABLET ONE (14:04)
--- NOTE | 2017-12-05 14:33 | ER ---
Nurse's Notes [facility] Name: Gonzalo Lincoln Age: 87 yrs Sex: Male : 1930 Arrival Date: 12/05/2017 Time: 13:29 Bed 25 Private MD: Nena Huston C Diagnosis: Cutaneous abscess of right hand-paronychia right index finger Presentation: 12/05 13:32 Presenting complaint: Patient states: Redness and swelling to right 2nd digit since aj this AM. Transition of care: patient was not received from another setting of care. Onset of symptoms was December 05, 2017. Risk Assessment: Do you want to hurt yourself or someone else? Patient reports no desire to harm self or others. Initial Sepsis Screen: Does the patient meet any 2 criteria? No. Patient's initial sepsis screen is negative. Does the patient have a suspected source of infection? No. Patient's initial sepsis screen is negative. Care prior to arrival: None. 13:32 Method Of Arrival: Ambulatory 13:32 Acuity: LIV 3 aj Triage Assessment: 13:33 General: Appears in no apparent distress. comfortable, Behavior is calm, cooperative, aj appropriate for age. Pain: Complains of pain in dorsal aspect of distal phalanx of right index finger and dorsal aspect of middle phalanx of right index finger. Neuro: Level of Consciousness is awake, alert, obeys commands, Oriented to person, place, time, situation, Appropriate for age. Respiratory: Airway is patent Respiratory effort is even, unlabored, Respiratory pattern is regular, symmetrical. Derm: Skin is intact, is healthy with good turgor, Skin is pink, warm \T\ dry. normal. Musculoskeletal: Swelling present in dorsal aspect of distal phalanx of right index finger and dorsal aspect of middle phalanx of right index finger Reports pain in dorsal aspect of distal phalanx of right index finger and dorsal aspect of middle phalanx of right index finger. 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 - Social history:: Smoking status: Patient/guardian denies using tobacco. - Ebola Screening: : Patient negative for fever greater than or equal to 101.5 degrees Fahrenheit, and additional compatible Ebola Virus Disease symptoms Patient denies exposure to infectious person Patient denies travel to an Ebola-affected area in the 21 days before illness onset No symptoms or risks identified at this time. Screenin:50 Abuse screen: Denies threats or abuse. Nutritional screening: No deficits noted. tl3 Tuberculosis screening: No symptoms or risk factors identified. Fall Risk None identified. Assessment: 13:50 General: Appears in no apparent distress. comfortable, well groomed, well developed, tl3 well nourished, Behavior is calm, cooperative, appropriate for age. Pain: Complains of pain in dorsal aspect of middle phalanx of right index finger and dorsal aspect of distal phalanx of right index finger. Neuro: No deficits noted. Level of Consciousness is awake, alert, obeys commands, Oriented to person, place, time, situation, Appropriate for age. Cardiovascular: Patient's skin is warm and dry. Respiratory: Airway is patent Respiratory effort is even, unlabored, Respiratory pattern is regular, symmetrical. GI: No deficits noted. No signs and/or symptoms were reported involving the gastrointestinal system. : No deficits noted. No signs and/or symptoms were reported regarding the genitourinary system. EENT: No deficits noted. No signs and/or symptoms were reported regarding the EENT system. Derm: Abscess located on dorsal aspect of proximal phalanx of right index finger and dorsal aspect of middle phalanx of right index finger and dorsal aspect of distal phalanx of right index finger. Musculoskeletal:. 14:50 Reassessment: Patient appears in no apparent distress at this time. No changes from tl3 previously documented assessment. Patient and/or family updated on plan of care and expected duration. Pain level reassessed. Patient is alert, oriented x 3, equal unlabored respirations, skin warm/dry/pink. Vital Signs: 13:33 BP 144 / 77; Pulse 67; Resp 19; Temp 97.3; Pulse Ox 100% on R/A; Weight 81.65 kg; aj Height 5 ft. 10 in. (177.80 cm); 14:50 BP 140 / 88; Pulse 72; Resp 18; Pulse Ox 100% on R/A; tl3 13:33 Body Mass Index 25.83 (81.65 kg, 177.80 cm) aj ED Course: 13:29 Patient arrived in ED. mr 13:29 Nena Huston MD is Private Physician. mr 13:33 Triage completed. aj 13:33 Radha Moeller FNP-C is PHCP. kb 13:33 Marques Steen MD is Attending Physician. kb 13:33 Arm band placed on left wrist. Patient placed in an exam room. aj 13:50 Patient has correct armband on for positive identification. tl3 13:50 No provider procedures requiring assistance completed. tl3 13:50 Patient did not have IV access during this emergency room visit. tl3 13:55 Jacqueline Clifford, RN is Primary Nurse. tl3 14:33 Nena Huston MD is Referral Physician. kb Administered Medications: 14:10 Drug: Lidocaine (1 %) 1 vials Volume: 5 ml; Route: Infiltration; tl3 14:30 Follow up: Response: Marked relief of symptoms tl3 14:10 Drug: Marcaine (0.5 %) 1 vials Volume: 10 ml; Route: Infiltration; tl3 14:30 Follow up: Response: Marked relief of symptoms tl3 14:10 Drug: Bactrim (160 mg-800 mg (DS) 1 tablet Route: PO; tl3 14:30 Follow up: Response: No adverse reaction tl3 14:49 Drug: Tetanus-Diphtheria Toxoid Adult 0.5 ml {Rehab Physician: [employer] Exp: tl3 11/16/2019. Lot #: [id number]. } Route: IM; Site: left deltoid; 14:50 Follow up: Response: Medication administered at discharge. tl3 Outcome: 14:33 Discharge ordered by . kb 14:50 Discharged to home ambulatory. tl3 14:50 Condition: stable 14:50 Discharge instructions given to patient, Instructed on discharge instructions, follow up and referral plans. medication usage, Demonstrated understanding of instructions, follow-up care, medications, Prescriptions given X 1. 14:52 Patient left the ED. tl3 Addendum: 12/10/2017 08:09 Addendum: Culture Results: Positive wound culture. No further action required. Bacteria a a5 sensitive to prescribed antibiotic. Signatures: Radha Moeller, HAULING CONTRACTOR-C HAULING CONTRACTOR-France Salinas RN RN Meg Veloz Audri, RN RN aa5 Jacqueline Clifford RN RN tl3
--- NOTE | 2017-12-05 14:33 | EDPHYS ---
Physician Documentation [facility] Name: Gonzalo Lincoln Age: 87 yrs Sex: Male : 1930 Arrival Date: 12/05/2017 Time: 13:29 Bed 25 Private MD: Nena Huston C ED Physician Marques Steen HPI: 12/05 13:53 This 87 yrs old Male presents to ER via Ambulatory with complaints of kb infected finger. 13:53 Description: erythematous, swollen, warm. The patient has not experienced similar kb symptoms in the past. The patient has not recently seen a physician. 13:54 The patient presents with an abscess of the dorsal aspect of distal phalanx of right kb index finger. Onset: The symptoms/episode began/occurred this morning. Possible cause(s): digging in flower bed a couple of days ago. Associated signs and symptoms: Pertinent positives: erythema, swelling, Pertinent negatives: discharge, drainage, foreign body sensation, fever, headache, nausea, shortness of breath, vomiting. Modifying factors: the symptoms are alleviated by nothing, the symptoms are aggravated by squeezing the lesion and expressing the contents. Severity of symptoms: At their worst the symptoms were moderate, in the emergency department the symptoms are unchanged. 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 - Social history:: Smoking status: Patient/guardian denies using tobacco. - Ebola Screening: : Patient negative for fever greater than or equal to 101.5 degrees Fahrenheit, and additional compatible Ebola Virus Disease symptoms Patient denies exposure to infectious person Patient denies travel to an Ebola-affected area in the 21 days before illness onset No symptoms or risks identified at this time. ROS: 13:52 Constitutional: Negative for fever, chills, and weight loss, Cardiovascular: Negative kb for chest pain, palpitations, and edema, Respiratory: Negative for shortness of breath, cough, wheezing, and pleuritic chest pain, Abdomen/GI: Negative for abdominal pain, nausea, vomiting, diarrhea, and constipation, Neuro: Negative for headache, weakness, numbness, tingling, and seizure. 13:52 Skin: Positive for abscess, erythema, swelling, of the dorsal aspect of distal phalanx of right index finger. Exam: 13:52 Constitutional: This is a well developed, well nourished patient who is awake, alert, kb and in no acute distress. Head/Face: Normocephalic, atraumatic. Chest/axilla: Normal chest wall appearance and motion. Nontender with no deformity. No lesions are appreciated. Cardiovascular: Regular rate and rhythm with a normal S1 and S2. No gallops, murmurs, or rubs. Normal PMI, no JVD. No pulse deficits. Respiratory: Lungs have equal breath sounds bilaterally, clear to auscultation and percussion. No rales, rhonchi or wheezes noted. No increased work of breathing, no retractions or nasal flaring. Abdomen/GI: Soft, non-tender, with normal bowel sounds. No distension or tympany. No guarding or rebound. No evidence of tenderness throughout. MS/ Extremity: Pulses equal, no cyanosis. Neurovascular intact. Full, normal range of motion. Neuro: Awake and alert, GCS 15, oriented to person, place, time, and situation. Cranial nerves II-XII grossly intact. Motor strength 5/5 in all extremities. Sensory grossly intact. Cerebellar exam normal. Normal gait. 13:52 Skin: abscess, that is small, of the dorsal aspect of distal phalanx of right index finger, with fluctuance, that is moderate. Vital Signs: 13:33 BP 144 / 77; Pulse 67; Resp 19; Temp 97.3; Pulse Ox 100% on R/A; Weight 81.65 kg; aj Height 5 ft. 10 in. (177.80 cm); 14:50 BP 140 / 88; Pulse 72; Resp 18; Pulse Ox 100% on R/A; tl3 13:33 Body Mass Index 25.83 (81.65 kg, 177.80 cm) aj Procedures: 14:13 Nerve block: (digital) of dorsal aspect of proximal phalanx of right index finger kb Medication: Lidocaine 1% without epinephrine Marcaine 0.5%, Amount: 5 mls were injected, Effect: the patient has resolution of the pain, Set up for procedure. Performed by Radha CURIEL Patient tolerated well. 14:32 I \T\ D: Incision and drainage was performed for an abscess of the right dorsal aspect of kb distal phalanx of right index finger Prepped with alcohol, Incised with 18g needle. Drained moderate amount purulent fluid. the patient tolerated the procedure well. MDM: 13:35 Patient medically screened. kb 13:53 Data reviewed: vital signs, nurses notes. Data interpreted: Pulse oximetry: on room air kb is 100 %. Interpretation: normal. 14:14 Counseling: I had a detailed discussion with the patient and/or guardian regarding: the kb historical points, exam findings, and any diagnostic results supporting the discharge/admit diagnosis, the need for outpatient follow up, a family practitioner, to return to the emergency department if symptoms worsen or persist or if there are any questions or concerns that arise at home. 12/05 13:42 Order name: Wound Culture kb Administered Medications: 14:10 Drug: Lidocaine (1 %) 1 vials Volume: 5 ml; Route: Infiltration; tl3 14:30 Follow up: Response: Marked relief of symptoms tl3 14:10 Drug: Marcaine (0.5 %) 1 vials Volume: 10 ml; Route: Infiltration; tl3 14:30 Follow up: Response: Marked relief of symptoms tl3 14:10 Drug: Bactrim (160 mg-800 mg (DS) 1 tablet Route: PO; tl3 14:30 Follow up: Response: No adverse reaction tl3 14:49 Drug: Tetanus-Diphtheria Toxoid Adult 0.5 ml {Leather [employer]: [employer]). Exp: tl3 11/16/2019. Lot #: [id number]. } Route: IM; Site: left deltoid; 14:50 Follow up: Response: Medication administered at discharge. tl3 Disposition: 15:06 Co-signature as Attending Physician, Marques Steen MD. rn Disposition: 12/05/17 14:33 Discharged to Home. Impression: Cutaneous abscess of right hand - paronychia right index finger. - Condition is Stable. - Discharge Instructions: Paronychia, [id number]. - Prescriptions for Bactrim DS 800- 160 mg Oral Tablet - take 1 tablet by ORAL route every 12 hours for 10 days; 20 tablet. - Medication Reconciliation Form, Thank You Letter, Antibiotic Education, Prescription Opioid Use form. - Follow up: Emergency Department; When: As needed; Reason: Worsening of condition. Follow up: [facility]; When: 2 - 3 days; Reason: Recheck today's complaints, Continuance of care, Re-evaluation by your physician. Signatures: Dispatcher [employer] EDRadha Holloway, CONTRACT PROJECT MANAGER-C CONTRACT PROJECT MANAGER-CkFrance Greene, RN Marques Fletcher MD MD rn Lowrey, Tammy, RN RN tl3 Corrections: (The following items were deleted from the chart) 14:52 14:33 12/05/2017 14:33 Discharged to Home. Impression: Cutaneous abscess of right hand tl3 - paronychia right index finger. Condition is Stable. Discharge Instructions: Paronychia, [id number]. Prescriptions for Bactrim DS 800-160 mg Oral Tablet - take 1 tablet by ORAL route every 12 hours for 10 days; 20 tablet. and Forms are Medication Reconciliation Form, Thank You Letter, Antibiotic Education, Prescription Opioid Use. Follow up: Emergency Department; When: As needed; Reason: Worsening of condition. Follow up: [facility]; When: 2 - 3 days; Reason: Recheck today's complaints, Continuance of care, Re-evaluation by your physician. kb
[2017-12-05] MEDS ORDERED: TETANUS & DIPHTHERIA TOX,ADULT 0.5 ML VIAL ONE (14:42)
[2017-12-05 14:56] VITALS: TEMP 97.3; O2SAT 100
[2017-12-05 14:57] VITALS: BP 140/88
== END 2017-12-05 14:52 | disposition home or self-care (01) ==
LOC: ER 13:26
PROC: 0J9J0ZZ Drainage of Right Hand Subcutaneous Tissue and Fascia, Open Approach (ICD-10-PCS; principal; 2017-12-05)
DX: L03.011 Cellulitis of right finger (principal); E11.9 Type 2 diabetes mellitus without complications; I25.10 Atherosclerotic heart disease of native coronary artery without angina pectoris; Z23 Encounter for immunization; Z79.82 Long term (current) use of aspirin; Z95.1 Presence of aortocoronary bypass graft
CPT/HCPCS: 64450; 87070; 87077; 87186; 87205; 90714; 99283

== ENCOUNTER 2019-01-20 10:15 | Emergency (ER) | payer OTHER ==
--- NOTE | 2019-01-20 11:18 | ER ---
Nurse's Notes [facility] Name: Gonzalo Lincoln Age: 88 yrs Sex: Male : 1930 Arrival Date: 01/20/2019 Time: 10:18 Bed 9 Private MD: Nena Huston C Diagnosis: Lesion to dorsum of right hand - chronic Presentation: 01/20 10:42 Presenting complaint: Patient states: growth to right hand that began 1 month ago. Pt aa5 states "I didn't know where to go so I came here". Transition of care: patient was not received from another setting of care. Onset of symptoms was 2018. Risk Assessment: Do you want to hurt yourself or someone else? Patient reports no desire to harm self or others. Initial Sepsis Screen: Does the patient meet any 2 criteria? No. Patient's initial sepsis screen is negative. Does the patient have a suspected source of infection? No. Patient's initial sepsis screen is negative. Care prior to arrival: None. 10:42 Method Of Arrival: Ambulatory aa5 10:42 Acuity: LIV 5 aa5 Historical: - Allergies: 10:42 NKDA; aa5 - PMHx: 10:42 CAD; Diabetes - NIDDM; aa5 - PSHx: 10:42 CABG; aa5 - Immunization history:: Flu vaccine is up to date. - Social history:: Smoking status: Patient/guardian denies using tobacco. - Ebola Screening: : No symptoms or risks identified at this time. Screenin:46 Abuse screen: Denies threats or abuse. Nutritional screening: No deficits noted. aa5 Tuberculosis screening: No symptoms or risk factors identified. Fall Risk None identified. Assessment: 10:46 General: Appears comfortable, Behavior is calm, cooperative. Pain: Denies pain. Neuro: aa5 Level of Consciousness is awake, alert, obeys commands, Oriented to person, place, time, situation. Cardiovascular: Patient's skin is warm and dry. Respiratory: Airway is patent Respiratory effort is even, unlabored, Respiratory pattern is regular, symmetrical. GI: No signs and/or symptoms were reported involving the gastrointestinal system. : No signs and/or symptoms were reported regarding the genitourinary system. EENT: No signs and/or symptoms were reported regarding the EENT system. Derm: Skin is pink, warm \\T\\ dry. Growth that is pea-sized noted to right hand. Pt denies pain to site. Musculoskeletal: Range of motion: intact in all extremities. 11:30 Reassessment: Patient is alert, oriented x 3, equal unlabored respirations, skin aa5 warm/dry/pink. Vital Signs: 10:43 BP 141 / 58; Pulse 72; Resp 16 S; Temp 97.8(TE); Pulse Ox 98% on R/A; Pain 0/10; aa5 10:45 Weight 73.48 kg (M); aa5 ED Course: 10:18 Patient arrived in ED. mr 10:19 Nena Huston MD is Private Physician. mr 10:42 London Durant MD is Attending Physician. kdr 10:42 Arm band placed on. aa5 10:42 Patient has correct armband on for positive identification. aa5 10:43 Triage completed. aa5 10:46 Elva Cruz RN is Primary Nurse. aa5 11:16 Dada Waterman MD is Referral Physician. kdr 11:30 No provider procedures requiring assistance completed. Patient did not have IV access aa5 during this emergency room visit. Administered Medications: No medications were administered Outcome: 11:17 Discharge ordered by MD. kdr 11:30 Discharged to home ambulatory. aa5 11:30 Condition: stable 11:30 Discharge instructions given to patient, Instructed on discharge instructions, follow up and referral plans. Demonstrated understanding of instructions, follow-up care. 11:33 Patient left the ED. iw Signatures: London Durant MD MD [facility] Ruthie Sandoval RN RN iw Elva Cruz RN RN aa5
--- NOTE | 2019-01-20 11:18 | EDPHYS ---
Physician Documentation [facility] Name: Gonzalo Lincoln Age: 88 yrs Sex: Male : 1930 Arrival Date: 01/20/2019 Time: 10:18 Bed 9 Private MD: Nena Huston C ED Physician London Durant HPI: 01/20 11:18 This 88 yrs old Male presents to ER via Ambulatory with complaints of Bump on kdr hand. 11:18 The patient or guardian reports deformity, swelling, Hyper epidermal growth to dorsum kdr of right hand that is reddened and about 1 cm in diameter. It is horn shaped. Context: The problem was sustained at home, resulted from an unknown cause. Onset: The symptoms/episode began/occurred gradually, 2 month(s) ago. Modifying factors: The symptoms are alleviated by nothing, the symptoms are aggravated by movement. Associated signs and symptoms: The patient has no apparent associated signs or symptoms. Severity of symptoms: At their worst the symptoms were mild, in the emergency department the symptoms are unchanged. The patient has not experienced similar symptoms in the past. The patient has been recently seen by a physician: the patient's primary care provider. 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 - Social history:: Smoking status: Patient/guardian denies using tobacco. - Ebola Screening: : No symptoms or risks identified at this time. ROS: 11:18 Constitutional: Negative for fever, chills, and weight loss, Eyes: Negative for injury, kdr pain, redness, and discharge, Neck: Negative for injury, pain, and swelling. 11:18 Skin: Positive for Hyper-cornification on the dorsum of the right hand - non-painful. Exam: 11:18 Constitutional: This is a well developed, well nourished patient who is awake, alert, kdr and in no acute distress. 11:18 Musculoskeletal/extremity: As noted above there is a lesion on the dorsum of the right hand that appears to be non-acute and without surrounding evidence of cellulitis or abscess. there is no pain or limitation to the movement of his right hand. Vital Signs: 10:43 BP 141 / 58; Pulse 72; Resp 16 S; Temp 97.8(TE); Pulse Ox 98% on R/A; Pain 0/10; aa5 10:45 Weight 73.48 kg (M); aa5 MDM: 11:17 Patient medically screened. kdr 11:18 Data reviewed: vital signs. Data reviewed: nurses notes. Counseling: I had a detailed kdr discussion with the patient and/or guardian regarding: the historical points, exam findings, and any diagnostic results supporting the discharge/admit diagnosis, the need for outpatient follow up. Administered Medications: No medications were administered Disposition: 01/20/19 11:17 Discharged to Home. 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 - Condition is Stable. - Medication Reconciliation Form, Thank You Letter form. - Follow up: Dada Waterman MD; When: 1 - 2 days; Reason: If symptoms return, Further diagnostic work-up, Recheck today's complaints, Continuance of care, Re-evaluation by your physician. - Problem is an ongoing problem. - Symptoms are unchanged. - Notes: Please follow-up with the hand surgeons listed. Signatures: London Durant MD MD kdr Ruthie Sandoval RN RN iw Elva Cruz RN RN aa5 Corrections: (The following items were deleted from the chart) 11:33 11:17 01/20/2019 11:17 Discharged to Home. Impression: Lesion to dorsum of right hand - iw chronic. Condition is Stable. Forms are Medication Reconciliation Form, Thank You Letter, Antibiotic Education, Prescription Opioid Use. Follow up: Dada Waterman; When: 1 - 2 days; Reason: If symptoms return, Further diagnostic work-up, Recheck today's complaints, Continuance of care, Re-evaluation by your physician. Problem is an ongoing problem. Symptoms are unchanged. kdr
[2019-01-20 11:43] VITALS: BP 141/58; TEMP 97.8; O2SAT 98
== END 2019-01-20 11:33 | disposition home or self-care (01) ==
LOC: ER 10:15
DX: L98.8 Other specified disorders of the skin and subcutaneous tissue (principal); Z95.1 Presence of aortocoronary bypass graft
CPT/HCPCS: 99281